=== PATIENT | male | born 1975 | race Two or more races ===

== ENCOUNTER 2017-11-01 06:51 | Emergency (ER) | payer OTHER ==
[2017-11-01 07:22] VITALS: TEMP 97.7; BMI 23.7
[2017-11-01] MEDS ORDERED: SODIUM CHLORIDE 0.9% 1000 ML INFUS.BAG IV ONE (08:53)
[2017-11-01] MEDS ORDERED: ONDANSETRON 4 MG/2 ML VIAL IVPUSH ONE (08:53)
--- NOTE | 2017-11-01 09:02 | PDOC ---
History of Present Illness - General History Source: Patient Exam Limitations: No Limitations - History of Present Illness Initial Comments: 11/01/17 09:52 The patient is a 42 year old male with a significant PMH of asthma who presents to the emergency department with nausea, diarrhea, and multiple episodes of emesis with associated abdominal pain for the past two days. The patient states the nausea and diarrhea has been persistent for the past two days. The patient notes the abdominal pain localized in the epigastrium and is alleviated after a bowel movement. The patient reports he usually eats out, but states he has not eaten anything out of the norm. The patient denies any sick contacts. The patient has not had his flu shot. The patient denies any recent travel. The patient denies chest pain, shortness of breath, and dizziness. Denies fever, chills, and constipation. Denies blood in the stool, dysuria, frequency, urgency and hematuria. Allergies: shellfish Social history: No reported alcohol, cigarette or drug use. <Tamia Westbrook - Last Filed: 11/01/17 09:57> <Catrachito Sharma - Last Filed: 11/01/17 16:54> - General Chief Complaint: Pain Stated Complaint: HEADACHE,ABDOMINAL PAIN Time Seen by Provider: 11/01/17 08:50 Past History <Tamia Westbrook - Last Filed: 11/01/17 09:57> - Past Medical History Asthma: Yes COPD: No - Suicide/Smoking/Psychosocial Hx Smoking History: Current every day smoker Have you smoked in the past 12 months: Yes Number of Cigarettes Smoked Daily: 1 Information on smoking cessation initiated: Yes 'Breaking Loose' booklet given: 11/01/17 Hx Alcohol Use: No Drug/Substance Use Hx: No Substance Use Type: None <Catrachito Sharma - Last Filed: 11/01/17 16:54> - Past Medical History Allergies/Adverse Reactions: Allergies Allergy/AdvReac Type Severity Reaction Status Date / Time shellfish derived Allergy Verified 11/01/17 07:18 Home Medications: Ambulatory Orders Ondansetron [Zofran Odt -] 4 mg SL TID #21 od.tablet 11/01/17 Review of Systems - Review of Systems Able to Perform ROS?: Yes Comments:: 11/01/17 09:53 ROS: A complete review of 10 out of 10 review of systems is taken and is negative apart from what is previously mentioned below and in the HPI. Constitutional: No recent illness; no fever ENT: No sore throat Cardiovascular: No palpitations; no chest pain Pulmonary: No cough; no trouble breathing Gastrointestinal: (+) Epigastrium pain. (+) Nausea. (+) Vomiting. (+) Diarrhea. Genitourinary: No urinary problems; no hematuria Skin: No rash Lymph system: No swollen glands Musculoskeletal: No joint swelling Neurological: No weakness; oo numbness; No Headache; no vertigo; no lightheadedness Psychiatric:No anxiety; no depression <Tamia Westbrook - Last Filed: 11/01/17 09:57> *Physical Exam - Vital Signs Last Vital Signs Temp Pulse Resp BP Pulse Ox 97.7 F 64 18 114/72 100 11/01/17 07:18 11/01/17 07:18 11/01/17 07:18 11/01/17 07:18 11/01/17 07:18 - Physical Exam Comments: 11/01/17 09:57 Vitals: Triage vital signs reviewed General Appearance: No acute distress, well nourished, well developed Head: Atraumatic Eyes: Pupils equal reactive round, extraocular movement intact Neck: Supple; No nuchal rigidity Chest Wall: Nontender Cardiac: Regular rate and rhythm, no murmurs, no rubs, no gallops Lungs: Clear to auscultation bilateral, good air movement bilaterally Abdomen: (+) Mild epigastrium discomfort. Soft, nondistended, normal bowel sounds. Extremities: Full range of motion to all extremities, no cyanosis, clubbing, or edema Skin: Warm and dry, no rashes or lesions, no rash, no petechiae Neuro: AOX3; Cranial Nerves 2-12 grossly intact, Strength intact to all extremities, Sensation intact to all extremities, gait normal Psych: Normal mood, normal affect <Tamia Westbrook - Last Filed: 11/01/17 09:57> - Vital Signs Last Vital Signs Temp Pulse Resp BP Pulse Ox 97.7 F 64 18 114/72 100 11/01/17 07:18 11/01/17 07:18 11/01/17 07:18 11/01/17 07:18 11/01/17 07:18 <Catrachito Sharma - Last Filed: 11/01/17 16:54> ED Treatment Course - LABORATORY CBC & Chemistry Diagram: 11/01/17 09:18 11/01/17 09:18 - ADDITIONAL ORDERS Additional order review: 11/01/17 09:22 Influenza Types A,B Antigen ([facility]) - Final Nasopharyngeal Swab - Final 11/01/17 09:18 RBC 4.96 MCV 92.3 MCHC 33.1 RDW 12.4 MPV 8.0 Neutrophils % 46.0 Lymphocytes % 35.3 Monocytes % 10.3 H Eosinophils % 7.5 H Basophils % 0.9 <Tamia Westbrook - Last Filed: 11/01/17 09:57> - LABORATORY CBC & Chemistry Diagram: 11/01/17 09:18 11/01/17 09:18 <Catrachito Sharma - Last Filed: 11/01/17 16:54> Medical Decision Making - Medical Decision Making 11/01/17 11:08 [place] nad, on red flags on VARELA hx, no neck stiffness, fever, rash, labs within normal limits history and examination consistent with viral GI illness given nausea vomiting diarrhea. Status post by mouth fluid challenge patient able to tolerate fluids by mouth. We'll discharge with prescription for Zofran encourage fluids for 1 day We'll discharge home with short course Zofran encourage fluids. Patient will return to ED for any severe worsening symptoms or for any concerns. <Catrachito Sharma - Last Filed: 11/01/17 16:54> *DC/Admit/Observation/Transfer - Attestations Scribe Attestion: 11/01/17 09:56 Documentation prepared by Tamia Westbrook, acting as manager medical writing for Catrachito Sharma MD. <Tamia Westbrook - Last Filed: 11/01/17 09:57> - Discharge Dispostion Admit: No <Catrachito Sharma - Last Filed: 11/01/17 16:54> Diagnosis at time of Disposition: Nausea & vomiting Qualifiers: Vomiting type: unspecified Vomiting Intractability: unspecified Qualified Code( s): R11.2 - Nausea with vomiting, unspecified - Discharge Dispostion Disposition: HOME Condition at time of disposition: Improved - Prescriptions Prescriptions: Ondansetron [Zofran Odt -] 4 mg SL TID #21 od.tablet - Patient Instructions Printed Discharge Instructions: DI for Nausea -- Adult Additional Instructions: Take [id number] Tylenol as directed on package as needed for fever or headache. Drink plenty fluids. Zofran as needed for nausea. If no vomiting by tonight tomorrow okay to proceed to a bland diet. Return to the emergency department for any severe worsening symptoms or for any concerns. If headaches persist follow up with Dr. Ascencio neurology next week. - Post Discharge Activity Forms/Work/School Notes: Back to Work
[2017-11-01] MEDS ORDERED: FAMOTIDINE IV 20 MG/12 ML VIAL IVPUSH STA (09:14)
[2017-11-01 09:27] LABS: BASO % 0.9 % (0-2.0); EOS % 7.5 % (0-4.5); HEMATOCRIT 45.8 % (35.4-49); HEMOGLOBIN 15.2 GM/dL (11.7-16.9); LYMPH % 35.3 % (8-40); MCH 30.6 pg (25.7-33.7); MCHC 33.1 g/dl (32.0-35.9); MEAN CELL VOLUME 92.3 fl (80-96); MONO % 10.3 % (3.8-10.2); PLATELET COUNT 222 K/MM3 (134-434); RBC 4.96 M/mm3 (4.00-5.60); RDW 12.4 % (11.9-15.9); WHITE BLOOD COUNT 4.4 K/mm3 (4.0-10.0)
[2017-11-01 10:01] LABS: ALBUMIN 3.6 g/dl (3.4-5.0); ALK PHOS 65 U/L (45-117); ANION GAP 8 (8-16); BILIRUBIN,TOTAL 0.5 mg/dL (0.2-1.0); BLOOD UREA NITROGEN 17 mg/dL (7-18); CALCIUM 8.9 mg/dL (8.5-10.1); CHLORIDE 104 mmol/L (98-107); CO2 29 mmol/L (21-32); CREATININE 0.8 mg/dL (0.7-1.3); GLUCOSE,RANDOM 96 mg/dL (74-106); LIPASE 88 U/L (73-393); POTASSIUM 4.1 mmol/L (3.5-5.1); SGOT/AST 22 U/L (15-37); SGPT/ALT 27 U/L (12-78); SODIUM 141 mmol/L (136-145); TOT PROT 7.4 g/dl (6.4-8.2)
[2017-11-01] MEDS ORDERED: FAMOTIDINE 20 MG/50 ML IVPB 20 MG/50 ML MG IVPB ONE (10:42)
[2017-11-01] MEDS ORDERED: ONDANSETRON 4 MG/2 ML VIAL ONE (10:42)
[2017-11-01] MEDS ORDERED: ACETAMINOPHEN 500 MG TABLET (FP) PO ONE (11:49)
[2017-11-01] MEDS ORDERED: ACETAMINOPHEN 325 MG TABLET (FP) ONE (11:56)
[2017-11-01 12:15] VITALS: BP 133/58; PULSE 85
== END 2017-11-01 12:15 | disposition home or self-care (01) ==
LOC: JER 06:51
PROC: 3E0337Z Introduction of Electrolytic and Water Balance Substance into Peripheral Vein, Percutaneous Approach (ICD-10-PCS; principal; 2017-11-01)
PROC: 3E033GC Introduction of Other Therapeutic Substance into Peripheral Vein, Percutaneous Approach (ICD-10-PCS; 2017-11-01)
DX: R11.2 Nausea with vomiting, unspecified (principal)
CPT/HCPCS: 36415; 80053; 83690; 85025; 87804; 99282-25